=== PATIENT | female | born 1960 | race Hispanic/Latino ===

== ENCOUNTER 2017-12-05 08:15 | Day surgery (SDC) | payer OTHER, MEDICARE ==
[~2017-12-05] VITALS: Ht 149.9 cm; Wt 78.5 kg
[~2017-12-05 08:15] MED LIST: SODIUM CHLORIDE 0.9% 1000ML 1,000 ML IV ONE
[2017-12-05 08:50] VITALS: BP 119/49
[2017-12-05] MEDS ORDERED: DEXTROSE 50%-WATER 50 ML DISP.SYRIN IV ONE (09:02)
[2017-12-05] MEDS ORDERED: PROPOFOL 10 MG/ML 20ML VIAL IV ONE ×2 (09:45→10:06)
[2017-12-05] MEDS ORDERED: FERS325 PO (09:56)
[2017-12-05] MEDS ORDERED: SIMV40TA5 PO (09:56)
[2017-12-05] MEDS ORDERED: DOCU100C19 PO (09:56)
[2017-12-05] MEDS ORDERED: ASPI-555 PO (09:56)
[2017-12-05] MEDS ORDERED: TOPI25TA48 PO (09:56)
[2017-12-05] MEDS ORDERED: METF500T6 PO (09:56)
[2017-12-05] MEDS ORDERED: DULO60CA63 PO (09:56)
[2017-12-05] MEDS ORDERED: CANA300T PO (09:56)
[2017-12-05] MEDS ORDERED: FLUT1AER IH (09:56)
[2017-12-05] MEDS ORDERED: CYAN-35 PO (09:56)
[2017-12-05] MEDS ORDERED: METO50TA18 PO (09:56)
[2017-12-05] MEDS ORDERED: INSLAN SQ ×2 (09:56)
[2017-12-05] MEDS ORDERED: LOSA25TA21 PO (09:56)
[2017-12-05 10:20] VITALS: BP 79/33
== END 2017-12-05 11:20 | disposition home or self-care (01) ==
LOC: DAH 08:15
PROVIDERS: ATTEND Internal Medicine Gastroenterology
DX: Z09 Encounter for follow-up examination after completed treatment for conditions other than malignant neoplasm (principal); Z86.010 Personal history of colon polyps; K26.9 Duodenal ulcer, unspecified as acute or chronic, without hemorrhage or perforation; D50.0 Iron deficiency anemia secondary to blood loss (chronic); K21.9 Gastro-esophageal reflux disease without esophagitis; R63.4 Abnormal weight loss; I10 Essential (primary) hypertension; E78.5 Hyperlipidemia, unspecified; J45.909 Unspecified asthma, uncomplicated; G47.33 Obstructive sleep apnea (adult) (pediatric); E11.9 Type 2 diabetes mellitus without complications; G43.909 Migraine, unspecified, not intractable, without status migrainosus; F32.9 Major depressive disorder, single episode, unspecified; Z68.34 Body mass index [BMI] 34.0-34.9, adult; Z79.84 Long term (current) use of oral hypoglycemic drugs; Z79.4 Long term (current) use of insulin; Z79.899 Other long term (current) drug therapy
CPT/HCPCS: 43239; 45378; 82948 ×4; 88305; 88312; 88342; A4606; J2704 ×2; J7030; J7070

== ENCOUNTER → 2018-02-22 | Outpatient (CLI) | payer OTHER, MEDICARE ==
[~2018-02-22] MED LIST changes: +ASPI-555 PO; +CANA300T PO; +CYAN-35 PO; +DOCU100C19 PO; +DULO60CA63 PO; +FERS325 PO; +FLUT1AER IH; +INSLAN SQ; +LOSA25TA21 PO; +METF500T6 PO; +METO50TA18 PO; +SIMV40TA5 PO; -SODIUM CHLORIDE 0.9% 1000ML 1,000 ML IV ONE; +TOPI25TA48 PO
== END | disposition home or self-care (01) ==
LOC: RAH 11:59
PROVIDERS: ATTEND Internal Medicine
DX: Z01.811 Encounter for preprocedural respiratory examination (principal); J44.9 Chronic obstructive pulmonary disease, unspecified
CPT/HCPCS: 71046

== ENCOUNTER → 2020-01-07 | Outpatient (CLI) | payer OTHER, MEDICARE ==
[~2020-01-07] MED LIST changes: +DOCU-282 PO; -DOCU100C19 PO; -DULO60CA63 PO; +DULO60CA64 PO; -LOSA25TA21 PO; +LOSA25TA41 PO; +METF-444 PO; -METF500T6 PO; +SIMV-46 PO; -SIMV40TA5 PO
== END | disposition home or self-care (01) ==
LOC: RAH 12:57
PROVIDERS: ATTEND Internal Medicine
DX: H05.233 Hemorrhage of bilateral orbit (principal); Z96.89 Presence of other specified functional implants
CPT/HCPCS: 70450; 70486

== ENCOUNTER → 2020-03-05 | Outpatient (CLI) | payer OTHER, MEDICARE | END | disposition home or self-care (01) | LOC: RAH 11:40 | PROVIDERS: ATTEND Internal Medicine | DX: J90 Pleural effusion, not elsewhere classified (principal); I51.7 Cardiomegaly | CPT/HCPCS: 71046 ==

== ENCOUNTER → 2020-04-13 | Outpatient (CLI) | payer OTHER, MEDICARE ==
[~2020-04-13] MED LIST changes: -ASPI-555 PO; +ASPI-556 PO
[2020-04-13 09:30] LABS: INR 1.08 (0.85-1.15); PARTIAL THROMBOPLASTIN TIME 30.3 SEC (26.3-35.5); PROTHROMBIN TIME 11.6 SEC (9.6-11.6)
[2020-04-13 10:18] LABS: INR 1.1 (0.85-1.15); PARTIAL THROMBOPLASTIN TIME 30.7 SEC (26.3-35.5); PROTHROMBIN TIME 11.8 SEC (9.6-11.6)
--- NOTE | 2020-04-13 10:30 | NUR ---
US GUIDED PARACENTESIS ORDERED. NOT DONE US OF ALL 4 QUADRANTS OF THE ABDOMEN PERFORMED BY STEVO CASTANEDA. DR. PALOMO REVIEWED THE IMAGES AND CONFIRMED, NOT ENOUGH FLUID TO SAFELY PERFORM PROCEDURE. INFORMED PT OF RESULTS. INSTRUCTED PATIENT TO FOLLOW UP WITH PCP REGARDING RESULTS AND IF ANY NOTED INCREASED SHORTNESS OF BREATH, CHEST PAIN, TO REPORT TO ED. PT DISCHARGED HOME AMBULATORY, STABLE, AAO X 3, NO C/O PAIN.
== END | disposition home or self-care (01) ==
LOC: RAH 08:47
PROVIDERS: ATTEND Internal Medicine
DX: J90 Pleural effusion, not elsewhere classified (principal)
CPT/HCPCS: 36415; 76604; 85610; 85730

== ENCOUNTER → 2022-06-10 | Outpatient (CLI) | payer OTHER, MEDICARE ==
[2022-06-10 12:27] LABS: BASOPHILS % (AUTO) 0.6 % (0.0-5.0); EOSINOPHILS % (AUTO) 3.3 % (0.0-8.0); HEMATOCRIT 35.4 % (36-48); LYMPHOCYTES % (AUTO) 30.9 % (21.0-51.0); MEAN CORPUSCULAR HEMOGLOBIN 19.1 pg (27.0-33.0); MEAN CORPUSCULAR HGB CONC 28.2 g/dL (32.0-36.0); MEAN CORPUSCULAR VOLUME 67.7 fL (79-99); MONOCYTES % (AUTO) 7.6 % (3.0-13.0); NEUTROPHILS % (AUTO) 57.3 % (40.0-77.0); PLATELET COUNT (AUTO) 229 K/uL (130-400); RED BLOOD CELL COUNT(AUTO) 5.23 MIL/uL (4.00-5.50); RED CELL DISTRIBUTION WIDTH 20.3 % (11.0-15.5); WHITE BLOOD COUNT (AUTO) 7.8 K/uL (4.8-10.8)
[2022-06-10 13:08] LABS: ALBUMIN 3.6 g/dL (3.5-5.0); CREATININE 1.1 mg/dL (0.5-1.5); MAGNESIUM 2.2 mg/dL (1.80-2.40); POTASSIUM 4.6 mmol/L (3.5-5.1); T4 (THYROXINE) 10.3 ug/dL (4.7-13.3); THYROID STIMULATING HORMONE 7.86 uIU/mL (0.36-3.74); TOTAL PROTEIN, SERUM 8.6 g/dL (6.0-8.3)
== END | disposition home or self-care (01) ==
LOC: LAB 08:43
PROVIDERS: ATTEND Internal Medicine Cardiovascular Disease
DX: I25.10 Atherosclerotic heart disease of native coronary artery without angina pectoris (principal); R53.83 Other fatigue; D64.9 Anemia, unspecified; Z79.899 Other long term (current) drug therapy
CPT/HCPCS: 36415; 80053; 80061; 82607; 83735; 84436; 84443; 85025

== ENCOUNTER → 2023-03-21 | Outpatient (CLI) | payer OTHER, MEDICARE ==
[~2023-03-21] MED LIST changes: +REGADENOSON 0.4 MG/5 ML PF SYG IVP ONE
== END | disposition home or self-care (01) ==
LOC: SHCH 08:56
PROVIDERS: ATTEND Internal Medicine Cardiovascular Disease
DX: I25.810 Atherosclerosis of coronary artery bypass graft(s) without angina pectoris (principal); R06.00 Dyspnea, unspecified
CPT/HCPCS: 78452; 93017; J2785; A9500 ×2; 96374

== ENCOUNTER → 2024-07-17 | Outpatient (CLI) | payer OTHER, MEDICARE ==
[~2024-07-17] MED LIST changes: -REGADENOSON 0.4 MG/5 ML PF SYG IVP ONE
== END | disposition home or self-care (01) ==
LOC: RAH 15:21
PROVIDERS: ATTEND Internal Medicine
DX: N93.9 Abnormal uterine and vaginal bleeding, unspecified (principal)
CPT/HCPCS: 76856

== ENCOUNTER → 2024-09-11 | Outpatient (CLI) | payer OTHER, MEDICARE ==
--- NOTE | 2024-09-11 16:34 | HMCIMG ---
CHEST 2VWS HISTORY: Preop COMPARISON: None FINDINGS: Frontal and lateral projections of the chest were obtained. There is no acute pulmonary infiltrates or failure. The heart is not enlarged. Poststernotomy changes are seen. No evidence of aortic calcification is seen. Degenerative changes are seen of the thoracolumbar spine. IMPRESSION: 1. No acute pulmonary infiltrates.
== END | disposition home or self-care (01) ==
LOC: RAH 15:21
PROVIDERS: ATTEND Internal Medicine
DX: Z01.811 Encounter for preprocedural respiratory examination (principal); M47.815 Spondylosis without myelopathy or radiculopathy, thoracolumbar region; Z98.890 Other specified postprocedural states
CPT/HCPCS: 71046

== ENCOUNTER → 2024-09-12 | Outpatient (CLI) | payer OTHER, MEDICARE ==
--- NOTE | 2024-09-12 12:27 | HMCIMG ---
US RENAL SONOGRAM HISTORY: Immaturity COMPARISON: None TECHNIQUE: Renal and bladder ultrasound study was performed. FINDINGS: The right kidney measures 9.8 x 4.6 x 4.6 cm. The left kidney measures 9.3 x 4.8 x 3.5 cm. No evidence of hydronephrosis is seen of either kidney. Both kidneys are seen. Bladder is moderately distended. Prevoid bladder volume is 71.59 cc. No postoperative residual is seen. Bladder wall measures 8 mm. IMPRESSION: 1. No hydronephrosis is seen.
== END | disposition home or self-care (01) ==
LOC: RAH 11:20
PROVIDERS: ATTEND Internal Medicine
DX: R31.9 Hematuria, unspecified (principal); N32.89 Other specified disorders of bladder
CPT/HCPCS: 76770

== ENCOUNTER → 2025-07-30 | Outpatient (CLI) | payer OTHER, MEDICAID ==
[~2025-07-30] MED LIST changes: +TOPI-257 PO; -TOPI25TA48 PO
--- NOTE | 2025-07-30 15:25 | HMCIMG ---
EXAM: CR Chest, 1 View. CLINICAL HISTORY: Hypertensive heart and chronic kidney disease without heart failure, with s COMPARISON: July 30, 2013 FINDINGS: LUNGS: There is no mass, infiltrate, or acute pulmonary abnormality. PLEURAL SPACES: No evidence of pleural effusion or pneumothorax. MEDIASTINUM: The cardiomediastinal silhouette is within normal limits. BONES: No aggressive appearing osseous lesion seen. IMPRESSION: No acute cardiopulmonary pathology is evident. /[place]
== END | disposition home or self-care (01) ==
LOC: RAH 12:19
PROVIDERS: ATTEND Internal Medicine
DX: Z01.818 Encounter for other preprocedural examination (principal); I13.10 Hypertensive heart and chronic kidney disease without heart failure, with stage 1 through stage 4 chronic kidney disease, or unspecified chronic kidney disease; N18.9 Chronic kidney disease, unspecified; R13.10 Dysphagia, unspecified
CPT/HCPCS: 71045